=== PATIENT | female | born 1935 | race Caucasian/White ===

== ENCOUNTER 2016-07-15 12:29 | Emergency (ER) | payer MEDICARE, OTHER, BC ==
[2016-07-15] MEDS ORDERED: ASPIRIN 81 MG TABLET, CHEWABLE PO ONE (12:33)
--- NOTE | 2016-07-15 12:39 | ER Document Report ---
ED General - General Stated Complaint: WEAKNESS/DIZZY Mode of Arrival: Medic Information source: Patient, Emergency Med Personnel Notes: 80-year-old female history of multiple stents with recent stress test with blockage 5 weeks ago presents with complaoints of back pain radiating to the front. Patient notes dizziness lightheadedness, she had a presyncopal episode. When EMS arrived patient heart rate was in the mid 30s and was given atropine 0.5 mg with resolution of heart rate. Patient at this time denies any symptoms states she feels much better TRAVEL OUTSIDE OF THE [place] IN LAST 30 DAYS: No - HPI Onset: Just prior to arrival Onset/Duration: Sudden Quality of pain: Achy Severity: Mild Pain Level: 1 Associated symptoms: Chest pain, Weakness Exacerbated by: Denies Relieved by: Denies Similar symptoms previously: No Recently seen / treated by doctor: No - Related Data Allergies/Adverse Reactions: morphine [Morphine] Allergy (Verified 07/15/16 13:35) made crazy Past Medical History - Social History Smoking Status: Never Smoker Cigarette use (# per day): No Chew tobacco use (# tins/day): No Smoking Education Provided: No Family History: Reviewed & Not Pertinent - Past Medical History Cardiac Medical History: Reports: Hx Heart Attack - 2009, Hx Hypertension - METOPROLOL, LISINOPRIL Pulmonary Medical History: Denies: Hx Asthma Neurological Medical History: Denies: Hx Cerebrovascular Accident, Hx Seizures GI Medical History: Denies: Hx Hepatitis, Hx Hiatal Hernia, Hx Ulcer Infectious Medical History: Denies: Hx Hepatitis Past Surgical History: Reports: Hx Cardiac Catheterization, Hx Open Heart Surgery - stents x4. Denies: Hx Mastectomy, Hx Pacemaker - Immunizations Immunizations up to date: Yes Hx Diphtheria, Pertussis, Tetanus Vaccination: Yes - 03/09/14 Review of Systems - Review of Systems Notes: REVIEW OF SYSTEMS: CONSTITUTIONAL : Denies fever, chills, or sweats. Denies recent illness. EENT: Denies eye, ear, throat, or mouth pain or symptoms. Denies nasal or sinus congestion or discharge. Denies throat, tongue, or mouth swelling or difficulty swallowing. CARDIOVASCULAR: Admits to pain to the back RESPIRATORY: Denies cough, cold, or chest congestion. Denies shortness of breath, difficulty breathing, or wheezing. GASTROINTESTINAL: Denies abdominal pain or distention. Denies nausea, vomiting , or diarrhea. Denies blood in vomitus, stools, or per rectum. Denies black, tarry stools. Denies constipation. GENITOURINARY: Denies difficulty urinating, painful urination, burning, frequency, blood in urine, or discharge. FEMALE GENITOURINARY: Denies vaginal bleeding, heavy or abnormal periods, irregular periods. Denies vaginal discharge or odor. MUSCULOSKELETAL: Denies back or neck pain or stiffness. Denies joint pain or swelling. SKIN: Denies rash, lesions or sores. HEMATOLOGIC : Denies easy bruising or bleeding. LYMPHATIC: Denies swollen, enlarged glands. NEUROLOGICAL: Admits to dizziness PSYCHIATRIC: Denies anxiety or stress. Denies depression, suicidal ideation, or homicidal ideation. ALL OTHER SYSTEMS REVIEWED AND NEGATIVE. Dictation was performed using [employer] voice recognition software PHYSICAL EXAMINATION: GENERAL: Well-appearing, well-nourished and in no acute distress. HEAD: Atraumatic, normocephalic. EYES: Pupils equal round and reactive to light, extraocular movements intact, conjunctiva are normal. ENT: Nares patent, oropharynx clear without exudates. Moist mucous membranes. NECK: Normal range of motion, supple without lymphadenopathy LUNGS: Breath sounds clear to auscultation bilaterally and equal. No wheezes rales or rhonchi. HEART: Regular rate and rhythm without murmurs ABDOMEN: Soft, nontender, nondistended abdomen. No guarding, no rebound. No masses appreciated. Female : deferred Musculoskeletal: Normal range of motion, no pitting or edema. No cyanosis. NEUROLOGICAL: Cranial nerves grossly intact. Normal speech, normal gait. Normal sensory, motor exams PSYCH: Normal mood, normal affect. SKIN: Warm, Dry, normal turgor, no rashes or lesions noted. Physical Exam - Vital signs Vitals: Pulse Ox 99 07/15/16 12:33 Course - Re-evaluation Re-evalutation: 07/15/16 12:40 Patient's heart rate at this time is stable, blood pressure is now normalized. Reviewed medications notes metoprolol 07/15/16 14:09 [place] paged 07/15/16 14:[address] Cotton , requests ct head - Vital Signs Vital signs: Temp Pulse Resp BP Pulse Ox 97.8 F 62 16 149/50 H 98 07/15/16 13:27 07/15/16 13:27 07/15/16 13:31 07/15/16 13:31 07/15/16 13:31 - Laboratory Result Diagrams: 07/15/16 12:35 07/15/16 12:35 Laboratory results interpreted by me: 07/15/16 07/15/16 12:35 12:35 MCHC 37.0 H Sodium 129.8 L Chloride 92 L Creatine Kinase 139 H - Diagnostic Test Radiology reviewed: Image reviewed, Reports reviewed - EKG Interpretation by Me EKG shows normal: Sinus rhythm, [place], Intervals, QRS Complexes - Multiple PVCs noted When compared to previous EKG there are: Previous EKG unavailable Discharge - Discharge Clinical Impression: Bradycardia Chest pain Qualifiers: Chest pain type: unspecified Qualified Code(s): R07.9 - Chest pain, unspecified Hypotension Qualifiers: Hypotension type: unspecified hypotension type Qualified Code(s): I95.9 - Hypotension, unspecified Condition: Serious Disposition: [facility] Referrals: ROYER WATSON MD [Primary Care Provider] - Follow up as needed
[2016-07-15 12:53] LABS: ABSOLUTE EOSINOPHILS # (AUTO) 0.3 10^3/uL (0.0-0.6); ABSOLUTE LYMPHOCYTES (AUTO) 3.2 10^3/uL (0.5-4.7); ABSOLUTE NEUT (AUTO) 4.1 10^3/uL (1.7-8.2); BASOPHILS % (AUTO) 0.3 % (0-2); EOSINOPHILS % (AUTO) 2.9 % (0-6); HEMOGLOBIN 13.3 g/dL (12.0-15.5); HGB HCT DIFFERENCE 3.9; LYMPHOCYTES % (AUTO) 37.2 % (13-45); MEAN CORPUSCULAR HEMOGLOBIN 30.4 pg (27.0-33.4); MEAN CORPUSCULAR VOLUME 82 fl (80-97); MONOCYTES % (AUTO) 12.1 % (3-13); RED BLOOD COUNT 4.39 10^6/uL (3.72-5.28); RED CELL DISTRIBUTION WIDTH 13.3 % (11.5-14.0); SEGMENTED NEUTROPHILS % (AUTO) 47.5 % (42-78); WHITE BLOOD COUNT 8.7 10^3/uL (4.0-10.5)
[2016-07-15 12:54] LABS: PROTHROMBIN TIME 13.7 SEC (11.4-15.4)
[2016-07-15 13:15] LABS: ALANINE AMINOTRANSFERASE 29 U/L (9-52); ALKALINE PHOSPHATASE 53 U/L (38-126); ANION GAP 14 (5-19); ASPARTATE AMINO TRANSFERASE 26 U/L (14-36); BILIRUBIN,DIRECT 0.4 mg/dL (0.0-0.4); BLOOD UREA NITROGEN 14 mg/dL (7-20); CALCIUM 9.2 mg/dL (8.4-10.2); CARBON DIOXIDE 24 mmol/L (22-30); CHLORIDE 92 mmol/L (98-107); CREATINE KINASE 139 U/L (30-135); CREATININE RESULT 0.73 mg/dL (0.52-1.25); GLUCOSE 99 mg/dL (75-110); MAGNESIUM 1.7 mg/dL (1.6-2.3); POTASSIUM 3.7 mmol/L (3.6-5.0); SODIUM 129.8 mmol/L (137-145); TOTAL PROTEIN 6.5 g/dL (6.3-8.2)
[2016-07-15 14:05] LABS: CREATINE KINASE MB 1.24 ng/mL (<4.55); TROPONIN I < 0.012 ng/mL
--- NOTE | 2016-07-15 18:33 | EKG REPORT ---
SEVERITY:- ABNORMAL ECG - SINUS RHYTHM VENTRICULAR TRIGEMINY LEFT ANTERIOR FASCICULAR BLOCK LEFT VENTRICULAR HYPERTROPHY : Confirmed by: Kenrick Cervantes MD 15-Jul-2016 18:33:41
[2016-07-15 21:07] VITALS: BP 152/54
== END 2016-07-15 20:30 | disposition short-term general hospital (02) ==
LOC: ER 12:29
DX: R00.1 Bradycardia, unspecified (principal); R07.9 Chest pain, unspecified; I95.9 Hypotension, unspecified; R53.1 Weakness; R42 Dizziness and giddiness; I25.2 Old myocardial infarction; Z79.899 Other long term (current) drug therapy
CPT/HCPCS: 93005; 99285; 36415; 82553; 82550; 83735; 85025; 85610; 80053; 84484; 71010; 70450; 93010; A9270

== ENCOUNTER 2016-11-23 15:26 | Emergency (ER) | payer MEDICARE, OTHER, BC ==
--- NOTE | 2016-11-23 15:42 | ER Document Report ---
ED Blood Pressure Problem - General Mode of Arrival: Medic Information source: Patient TRAVEL OUTSIDE OF THE [place] IN LAST 30 DAYS: No - HPI Patient complains to provider of: Low blood pressure Onset: This morning - Refer to HPI Notes Associated symptoms: Visual changes Similar symptoms previously: No Recently seen / treated by doctor: No <KATIA STATON - Last Filed: 11/23/16 16:30> <ALEJANDRO AWAD - Last Filed: 11/23/16 18:18> - General Stated Complaint: BLOOD PRESSURE PROBLEMS Time Seen by Provider: 11/23/16 15:30 Notes: Patient is an 80 year old female presenting to the ED for hypotension. Patient took her blood pressure like normal and it was 71/50. Patient states she then was watching TV when her eyesight went "black" and she felt like she was going to pass out. Patient states this happened to both of her eyes and it did not last very long. Patient states she also felt clammy during this. Patient's blood pressure was 60s/30s with EMS and after the patient was stabilized her pressure was 107/52. Patient was seen on 07/15/16 for dizziness and was bradycardia; patient was sent to [facility] and a cardiac catheterization was completed with no stent. Patient states a stent was attempted but was unsuccessful. Patient was told she has CAD at [facility] and she also has hypertension and stents x4. Patient stared taking Isosorbide on 11/19/16 for her hypertension. Patient has a follow-up appointment for this on . PCP: Dr. Cao (KATIA STATON) - Related Data Allergies/Adverse Reactions: morphine [Morphine] Allergy (Verified 11/23/16 16:42) made tom Past Medical History - General Information source: Patient - Social History Smoking Status: Never Smoker Cigarette use (# per day): No Chew tobacco use (# tins/day): No Smoking Education Provided: No Frequency of alcohol use: None Drug Abuse: None Family History: Reviewed & Not Pertinent - Past Medical History Cardiac Medical History: Reports: Hx Heart Attack - 2009, Hx Hypertension - METOPROLOL, LISINOPRIL Past Surgical History: Reports: Hx Cardiac Catheterization - stents x4 - Immunizations Immunizations up to date: Yes Hx Diphtheria, Pertussis, Tetanus Vaccination: Yes - 03/09/14 <KATIA STATON - Last Filed: 11/23/16 16:30> Review of Systems - Review of Systems Constitutional: No symptoms reported EENT: See HPI Cardiovascular: See HPI Respiratory: No symptoms reported Gastrointestinal: No symptoms reported Genitourinary: No symptoms reported Female Genitourinary: No symptoms reported Musculoskeletal: No symptoms reported Skin: No symptoms reported Hematologic/Lymphatic: No symptoms reported Neurological/Psychological: No symptoms reported -: Yes All other systems reviewed and negative <KATIA STATON - Last Filed: 11/23/16 16:30> Physical Exam <KATIA STATON - Last Filed: 11/23/16 16:30> <ALEJANDRO AWAD - Last Filed: 11/23/16 18:18> - Vital signs Vitals: Resp Pulse Ox 16 98 11/23/16 15:45 11/23/16 15:45 - Notes Notes: GENERAL: Alert, interacts well. Mild distress. HEAD: Normocephalic, atraumatic. EYES: Appear normal. Pupils equal, round, and reactive to light. ENT: Moist mucus membranes, tongue midline. NECK: Full range of motion. Supple. Trachea midline. LUNGS: Clear to auscultation bilaterally, no wheezes, rales, or rhonchi. No respiratory distress. HEART: Regular rate and rhythm. No murmurs, gallops, or rubs. ABDOMEN: Soft, non-tender. Non-distended. Normal bowel sounds. EXTREMITIES: Moves all 4 extremities spontaneously. Normal strength. No edema. NEUROLOGICAL: Alert and oriented x3. Normal speech. No focal neurological deficits. GSC 15. PSYCH: Normal affect, normal mood. SKIN: Warm, dry, normal turgor. No rashes or lesions noted. (KATIA STATON) Course <KATIA STATON - Last Filed: 11/23/16 16:30> - Laboratory Result Diagrams: 11/23/16 16:08 11/23/16 16:08 - Diagnostic Test Radiology reviewed: Image reviewed, Reports reviewed - Chest x-ray shows mild cardiomegaly - EKG Interpretation by Me EKG shows normal: Sinus rhythm, [place], Intervals, QRS Complexes, ST-T Waves Rate: Normal - 53 Rhythm: NSR [place]/QRS: LAHB/LAFB Voltage: Consistant with LVH When compared to previous EKG there are: No significant change <ALEJANDRO AWAD - Last Filed: 11/23/16 18:18> - Re-evaluation Re-evalutation: 11/23/16 18:15 The patient's blood pressure has remained in the 145 150 range, and she feels fine. Is unremarkable. The last time this happened, she did get transferred, had a cardiac catheterization, and found that the vessels were not amenable to stenting so maximal medical management was recommended. She did have an additional medication added 4 days ago to control her blood pressure. The patient and the family feel comfortable stopping the most recent medication addition, and following up with her doctor on Friday. She now recognizes the need to lay down if she starts feeling lightheaded or blood pressure drops. She will return to the emergency room if the symptoms recur. (ALEJANDRO AWAD) - Vital Signs Vital signs: Temp Pulse Resp BP Pulse Ox 15 150/55 H 98 11/23/16 17:34 11/23/16 17:34 11/23/16 17:34 - Laboratory Laboratory results interpreted by me: 11/23/16 11/23/16 11/23/16 16:08 16:08 17:28 Hct 35.5 L MCHC 36.6 H Sodium 133.2 L Chloride 97 L Direct Bilirubin 0.5 H Urine Ascorbic Acid 40 H Discharge <KATIA STATON - Last Filed: 11/23/16 16:30> <ALEJANDRO AWAD - Last Filed: 11/23/16 18:18> - Discharge Clinical Impression: Near syncope Hypotension Qualifiers: Hypotension type: unspecified hypotension type Qualified Code(s): I95.9 - Hypotension, unspecified Condition: Stable Disposition: HOME, SELF-CARE Additional Instructions: Stop the most recent medication that was started to control your blood pressure. Be sure to lay down and elevate your feet if he began to feel lightheaded or your blood pressure falls again. Follow-up with your doctor on Friday to review your medications and symptoms. Return if you experience another drop in blood pressure. RETURN TO THE EMERGENCY ROOM IF ANY NEW OR WORSENING SYMPTOMS. Referrals: HAYES VERDUZCO MD [Primary Care Provider] - 11/25/16 Scribe Attestation: 11/23/16 18:17 I personally performed the services described in the documentation, reviewed and edited the documentation which was dictated to the scribe in my presence, and it accurately records my words and actions. (ALEJANDRO AWAD) Scribe Documentation - Scribe Written by Scribmegha:: Donte Leon 11/23/16 16:31 acting as scribe for :: Jeanne <KATIA STATON - Last Filed: 11/23/16 16:30>
[2016-11-23] MEDS ORDERED: NORMAL SALINE 1000 ML 250 ML IV ONE (16:33)
[2016-11-23 17:27] LABS: ABSOLUTE EOSINOPHILS # (AUTO) 0.1 10^3/uL (0.0-0.6); ABSOLUTE LYMPHOCYTES (AUTO) 1.5 10^3/uL (0.5-4.7); ABSOLUTE MONOCYTES (AUTO) 0.6 10^3/uL (0.1-1.4); ABSOLUTE NEUT (AUTO) 4.4 10^3/uL (1.7-8.2); ALANINE AMINOTRANSFERASE 30 U/L (9-52); ALBUMIN 4.3 g/dL (3.5-5.0); ALKALINE PHOSPHATASE 49 U/L (38-126); ANION GAP 13 (5-19); ASPARTATE AMINO TRANSFERASE 28 U/L (14-36); BASOPHILS % (AUTO) 0.4 % (0-2); BILIRUBIN,DIRECT 0.5 mg/dL (0.0-0.4); BILIRUBIN,TOTAL 1.1 mg/dL (0.2-1.3); BLOOD UREA NITROGEN 19 mg/dL (7-20); CALCIUM 9.3 mg/dL (8.4-10.2); CARBON DIOXIDE 23 mmol/L (22-30); CHLORIDE 97 mmol/L (98-107); CREATINE KINASE 81 U/L (30-135); CREATININE RESULT 0.81 mg/dL (0.52-1.25); EOSINOPHILS % (AUTO) 1.5 % (0-6); GLUCOSE 97 mg/dL (75-110); HEMATOCRIT 35.5 % (36.0-47.0); HGB HCT DIFFERENCE 3.5; LYMPHOCYTES % (AUTO) 23.3 % (13-45); MEAN CORPUSCULAR HEMOGLOBIN 31.6 pg (27.0-33.4); MEAN CORPUSCULAR HGB CONC 36.6 g/dL (32.0-36.0); MEAN CORPUSCULAR VOLUME 86 fl (80-97); MONOCYTES % (AUTO) 8.9 % (3-13); POTASSIUM 4.6 mmol/L (3.6-5.0); RED BLOOD COUNT 4.11 10^6/uL (3.72-5.28); RED CELL DISTRIBUTION WIDTH 13.7 % (11.5-14.0); SEGMENTED NEUTROPHILS % (AUTO) 65.9 % (42-78); SODIUM 133.2 mmol/L (137-145); TOTAL PROTEIN 7.4 g/dL (6.3-8.2); WHITE BLOOD COUNT 6.6 10^3/uL (4.0-10.5)
--- NOTE | 2016-11-23 17:33 | RADIOLOGY REPORT (SQ) ---
EXAM DESCRIPTION: CHEST SINGLE VIEW COMPLETED DATE/TIME: 11/23/2016 5:20 pm REASON FOR STUDY: hypotensive COMPARISON: 07/15/2016 NUMBER OF VIEWS: One view. TECHNIQUE: Single frontal radiographic view of the chest acquired. LIMITATIONS: None. FINDINGS: LUNGS AND PLEURA: No opacities, masses or pneumothorax. No pleural effusion. MEDIASTINUM AND HILAR STRUCTURES: No masses. Contour normal. HEART AND VASCULAR STRUCTURES: Mild cardiomegaly, unchanged. Normal vasculature. BONES: No acute findings. HARDWARE: None in the chest. OTHER: No other significant finding. IMPRESSION: MILD CARDIOMEGALY WITHOUT FAILURE. NO OTHER SIGNIFICANT RADIOGRAPHIC FINDING IN THE [facility]. TECHNICAL DOCUMENTATION: JOB ID: [id number] [employer]- All Rights Reserved
[2016-11-23 17:43] LABS: CREATINE KINASE MB 0.95 ng/mL (<4.55); TROPONIN I < 0.012 ng/mL
[2016-11-23 17:52] LABS: APPEARANCE,URINE CLEAR; BILIRUBIN,URINE NEGATIVE (NEGATIVE); GLUCOSE, URINE NEGATIVE (NEGATIVE); KETONES,URINE NEGATIVE (NEGATIVE); LEUKOCYTE ESTERASE,URINE NEGATIVE (NEGATIVE); NITRITE,URINE NEGATIVE (NEGATIVE); PROTEIN,URINE NEGATIVE (NEGATIVE); URINE SPECIFIC GRAVITY 1.014; UROBILINOGEN,URINE NEGATIVE mg/dL (<2.0)
[2016-11-23 18:46] VITALS: BP 135/78
--- NOTE | 2016-11-24 11:13 | EKG REPORT ---
SEVERITY:- ABNORMAL ECG - SINUS RHYTHM LEFT ANTERIOR FASCICULAR BLOCK LEFT VENTRICULAR HYPERTROPHY : Confirmed by: An Robertson MD 24-Nov-2016 11:12:58
== END 2016-11-23 18:45 | disposition home or self-care (01) ==
LOC: ER 15:26
DX: R42 Dizziness and giddiness (principal); I95.9 Hypotension, unspecified; I10 Essential (primary) hypertension; I25.10 Atherosclerotic heart disease of native coronary artery without angina pectoris
CPT/HCPCS: 93005; 99285; 36415; 82553; 82550; 85025; 80053; 81001; 84484; 71010; 93010; J7030

== ENCOUNTER 2018-12-19 21:39 | Inpatient (IN) | payer MEDICARE, OTHER, BC ==
[2018-12-19 22:38] LABS: ABSOLUTE EOSINOPHILS # (AUTO) 0.1 10^3/uL (0.0-0.6); ABSOLUTE LYMPHOCYTES (AUTO) 1.4 10^3/uL (0.5-4.7); ABSOLUTE MONOCYTES (AUTO) 0.8 10^3/uL (0.1-1.4); ABSOLUTE NEUT (AUTO) 6.6 10^3/uL (1.7-8.2); BASOPHILS % (AUTO) 0.5 % (0-2); EOSINOPHILS % (AUTO) 1.2 % (0-6); HEMATOCRIT 30.2 % (36.0-47.0); LYMPHOCYTES % (AUTO) 15.9 % (13-45); MEAN CORPUSCULAR HEMOGLOBIN 33.9 pg (27.0-33.4); MEAN CORPUSCULAR HGB CONC 36.5 g/dL (32.0-36.0); MEAN CORPUSCULAR VOLUME 93 fl (80-97); PLATELET COUNT 125 10^3/uL (150-450); RED BLOOD COUNT 3.25 10^6/uL (3.72-5.28); RED CELL DISTRIBUTION WIDTH 13.4 % (11.5-14.0); SEGMENTED NEUTROPHILS % (AUTO) 73.4 % (42-78); TOTAL CELLS COUNTED % (AUTO) 100 %; WHITE BLOOD COUNT 8.9 10^3/uL (4.0-10.5)
[2018-12-19] MEDS ORDERED: NORMAL SALINE 500 ML IV ONE (22:38)
--- NOTE | 2018-12-19 22:38 | ER Document Report ---
ED General - General Chief Complaint: Dizziness Stated Complaint: FALL Time Seen by Provider: 12/19/18 22:15 Primary Care Provider: HAYES VERDUZCO MD [Primary Care Provider] - Follow up as needed TRAVEL OUTSIDE OF THE [place] IN LAST 30 DAYS: No - HPI Notes: Patient is a 83-year-old female that presents to the emergency department for chief complaint of near syncope. Patient states she stood up off of her couch and walked towards her living room. She states there are 3 stairs that she had to go up to get into the living room and when she got to the top of the steps she began to feel very lightheaded. She lowered herself down onto her hands and knees and then reports her vision went very black. She states she was too lightheaded to stand up. She was able to crawl into another room and call her family. She denied any fall or injury. She denied any complete loss of consciousness. She did not have any associated shortness of breath, palpitations, chest pain, nausea or diaphoresis. Patient does report history of low heart rate and near syncopal episodes in the past. Currently patient states she feels back to normal. She does report that her sister a few days ago and she was at the today. She reports she had been trying to drink plenty of water but did not eat dinner. Past Medical History: Hypertension, hyperlipidemia, CAD Past Surgical History: Reviewed in chart Social History: Lives at home independently. Denies tobacco and alcohol use Family History: Reviewed and noncontributory for presenting illness Allergies: Reviewed, see documented allergy list. REVIEW OF SYSTEMS: CONSTITUTIONAL : No fever No chills No diaphoresis No recent illness EENT: No vision changes No congestion No sore throat CARDIOVASCULAR: No chest pain No palpitations RESPIRATORY: No shortness of breath No cough No difficulty breathing GASTROINTESTINAL: No abdominal pain No nausea No vomiting No diarrhea GENITOURINARY: No dysuria No hematuria No difficulty urinating MUSCULOSKELETAL: No back pain No leg pain No arm pain SKIN: No rashes No lesions LYMPHATIC: No swollen, enlarged glands. NEUROLOGICAL: lightheadedness No headache No weakness No paresthesias PSYCHIATRIC: No anxiety No depression PHYSICAL EXAMINATION: Vital signs reviewed, nursing noted reviewed. GENERAL: Well-appearing, well-nourished and in no acute distress. HEAD: Atraumatic, normocephalic. EYES: Eyes appear normal, extraocular movements intact, sclera anicteric, conjunctiva are normal. ENT: nares patent, oropharynx clear without exudates. Moist mucous membranes. NECK: Normal range of motion, supple without lymphadenopathy LUNGS: Breath sounds clear to auscultation bilaterally and equal. No wheezes rales or rhonchi. HEART: Regular rate and rhythm without murmurs ABDOMEN: Soft, nontender, normoactive bowel sounds. No rebound, guarding, or rigidity. No masses appreciated. EXTREMITIES: Nontender, good range of motion, no pitting or edema. NEUROLOGICAL: No focal neurological deficits. Moves all extremities spontaneously Motor and sensory grossly intact on exam. PSYCH: Normal mood, normal affect. SKIN: Warm, Dry, normal turgor, no rashes or lesions noted on exposed skin - Related Data Allergies/Adverse Reactions: morphine [Morphine] Allergy (Verified 12/19/18 22:15) made crazy Past Medical History - Social History Smoking Status: Never Smoker Frequency of alcohol use: None Drug Abuse: None Family History: Reviewed & Not Pertinent Patient has suicidal ideation: No Patient has homicidal ideation: No - Past Medical History Cardiac Medical History: Reports: Hx Heart Attack - 2009, Hx Hypertension - METOPROLOL, LISINOPRIL Pulmonary Medical History: Denies: Hx Asthma Neurological Medical History: Denies: Hx Cerebrovascular Accident, Hx Seizures Renal/ Medical History: Denies: Hx Peritoneal Dialysis GI Medical History: Denies: Hx Hepatitis, Hx Hiatal Hernia, Hx Ulcer Infectious Medical History: Denies: Hx Hepatitis Past Surgical History: Reports: Hx Cardiac Catheterization - stents x4, Hx Open Heart Surgery - stents x4. Denies: Hx Mastectomy, Hx Pacemaker - Immunizations Immunizations up to date: Yes Hx Diphtheria, Pertussis, Tetanus Vaccination: Yes - 03/09/14 Physical Exam - Vital signs Vitals: Temp Pulse Resp BP Pulse Ox 97.7 F 48 L 13 160/58 H 99 12/19/18 21:40 12/19/18 21:40 12/19/18 21:40 12/19/18 21:40 12/19/18 21:40 Course - Re-evaluation Re-evalutation: 12/19/18 22:36 Vitals reviewed. Nursing notes reviewed. Patient is alert and mentating. Currently she is asymptomatic. Patient was bradycardic with a heart rate of 38 and hypotensive with a systolic blood pressure of 96 when EMS arrived at her ho use. She did receive 500 mL's of normal saline prior to presentation in the emergency and reports that made her feel significantly better. Currently her vital signs are stable. EKG shows bradycardia with no ectopy or ischemic changes. Patient does take metoprolol and has a history of bradycardia. Her low blood pressure and near syncopal episode may have been related to poor oral intake from being at her sister's all day. Patient will be placed on classroom monitor. 12/19/18 23:47 Patient reevaluated. She states she is now feeling dizzy again. When the orthostatic vital signs were obtained she states she was having a hard time standing up because of lightheadedness and dizziness. She is technically orthostatic negative by vitals. Patient's lab work shows hyponatremia with a sodium of 124. Her potassium is normal. EKG shows a sinus bradycardia with QT prolongation and QTC of 508. Patient will be admitted to the hospital for her near syncope and hyponatremia. Care discussed with Dr. Brown who accepts admission. Family in agreement with plan of care. Laboratory 12/19/18 12/19/18 12/19/18 22:20 22:20 22:20 WBC 8.9 RBC 3.25 L Hgb 11.0 L Hct 30.2 L MCV 93 MCH 33.9 H MCHC 36.5 H RDW 13.4 Plt Count 125 L Lymph % (Auto) 15.9 [place] % (Auto) 9.0 Eos % (Auto) 1.2 Baso % (Auto) 0.5 Absolute Neuts (auto) 6.6 Absolute Lymphs (auto) 1.4 Absolute Monos (auto) 0.8 Absolute Eos (auto) 0.1 Absolute Basos (auto) 0.0 Seg Neutrophils % 73.4 Sodium 124.4 L Potassium 3.6 Chloride 92 L Carbon Dioxide 23 Anion Gap 9 BUN 20 Creatinine 0.69 Est GFR ( Amer) > 60 Est GFR (MDRD) Non-Af > 60 Glucose 90 Calcium 8.7 Troponin I < 0.012 Chest X-Ray 12/19/18 22:16 IMPRESSION: 1. No acute pulmonary process identified. - Vital Signs Vital signs: Temp Pulse Resp BP Pulse Ox 97.7 F 48 L 15 137/50 H 98 12/19/18 21:40 12/19/18 22:37 12/19/18 22:01 12/19/18 22:37 12/19/18 22:01 - Laboratory Result Diagrams: 12/19/18 22:20 12/19/18 22:20 Laboratory results interpreted by me: 12/19/18 12/19/18 22:20 22:20 RBC 3.25 L Hgb 11.0 L Hct 30.2 L MCH 33.9 H MCHC 36.5 H Plt Count 125 L Sodium 124.4 L Chloride 92 L - EKG Interpretation by Me Additional EKG results interpreted by me: 12/19/18 22:36 Interpreted by myself [id number]: Sinus bradycardia, rate 48, LVH, normal axis, no ectopy, no STEMI, QT prolongation, QTC 508 Discharge - Discharge Clinical Impression: Near syncope, Bradycardia, Hyponatremia Condition: Stable Disposition: ADMITTED INPATIENT Admitting Provider: Kevin (Hospitalist) Unit Admitted: Telemetry Referrals: HAYES VERDUZCO MD [Primary Care Provider] - Follow up as needed
[2018-12-19 23:03] LABS: ANION GAP 9 (5-19); BLOOD UREA NITROGEN 20 mg/dL (7-20); CALCIUM 8.7 mg/dL (8.4-10.2); CARBON DIOXIDE 23 mmol/L (22-30); CHLORIDE 92 mmol/L (98-107); GLUCOSE 90 mg/dL (75-110); POTASSIUM 3.6 mmol/L (3.6-5.0)
--- NOTE | 2018-12-19 23:19 | RADIOLOGY REPORT (SQ) ---
EXAM DESCRIPTION: XR CHEST 1 VIEW COMPLETED DATE/TME: 12/19/2018 22:16 CLINICAL HISTORY: Syncope COMPARISON: 11/23/2016 FINDINGS: Single frontal view of the chest. Cardiomediastinal silhouette: Atherosclerotic calcification of the thoracic aorta. Heart is not enlarged. Leads overlie the chest. Lungs: No consolidation, pneumothorax, or pleural effusion. Bones: No acute osseous abnormality. Upper abdomen: No abnormality identified. IMPRESSION: 1. No acute pulmonary process identified.
[2018-12-19] MEDS ORDERED: ONDANSETRON HCL INJ/PF 4 MG/2 ML SDV IV PRN (23:55)
[2018-12-19] MEDS ORDERED: MAGNESIUM HYDROXIDE SUSP 30 ML UDCUP PO PRN (23:55)
[2018-12-19] MEDS ORDERED: RINGERS SOLUTION,LACTATED 1,000 ML IV PRN (23:55)
[2018-12-19] MEDS ORDERED: MAG HYDROX/AL HYDROX/SIMETH SUSP 30 ML UDCUP PO PRN (23:55)
[2018-12-20 00:45] LABS: APPEARANCE,URINE CLEAR; BILIRUBIN,URINE NEGATIVE (NEGATIVE); COLOR,URINE YELLOW; GLUCOSE, URINE NEGATIVE (NEGATIVE); KETONES,URINE NEGATIVE (NEGATIVE); LEUKOCYTE ESTERASE,URINE NEGATIVE (NEGATIVE); NITRITE,URINE NEGATIVE (NEGATIVE); PROTEIN,URINE NEGATIVE (NEGATIVE); URINE SPECIFIC GRAVITY 1.009; UROBILINOGEN,URINE NEGATIVE mg/dL (<2.0)
[2018-12-20] MEDS: FAMOTIDINE 20 MG TABLET PO SCH ×3 (01:32→21:43)
[2018-12-20 01:45] LABS: FREE T3 3.06 pg/mL (2.77-5.27); FREE T4 (FREE THYROXINE) 1.18 ng/dL (0.78-2.19)
[2018-12-20 01:59] LABS: THYROID STIMULATING HORMONE 1.77 uIU/mL (0.47-4.68)
--- NOTE | 2018-12-20 02:03 | PDOC H&P ---
History of Present Illness Admission Date/PCP: 12/19/2018 23:59 HAYES VERDUZCO MD Patient complains of: Lightheadedness History of Present Illness: NEHA DENTON is a 83 year old female who presented to the emergency room with acute lightheadedness. She admits that shortly prior to coming to the hospital via ambulance she got up off of her couch and walked up the 3 stairs to get into her living room when she began feeling very lightheaded and fell over the last step onto her hands and knees. She felt too lightheaded to stand and her vision seemed to "go dark". She crawled in her hands and knees to get to a phone where she called her son for help. She denies unconsciousness and injury. She denies other accompanying or associated symptoms. She admits several prior similar episodes, "usually due to my sodium and potassium". She further reports that she attended her sister's today and did not eat dinner this evening but was drinking plenty of fluids throughout the day. At the time the patient was seen in the emergency room she felt like she was back to normal. She has not identified any aggravating or ameliorating factors for her lightheadedness. In the emergency room she was found to be bradycardic (38-48) which was also noted by EMS and she was mildly hypotensive. Her initial cardiac enzymes were negative and her EKG showed no evidence of myocardial ischemia or injury. She was subsequently admitted to the hospital for further evaluation and treatment. Past Medical History Cardiac Medical History: Reports: Coronary Artery Disease, Hyperlipidema, Hypertension Denies: Atrial Fibrillation, Congestive Heart Failure, DVT, Myocardial Infarction, Peripheral Vascular Disease, Pulmonary Embolism Pulmonary Medical History: Denies: Asthma, Chronic Obstructive Pulmonary Disease (COPD), Tuberculosis EENT Medical History: Reports: Cataracts - Bilateral with lens replacements, Eyes - Borderline glaucoma Denies: Ears - Hearing aids, Nose - Allergic rhinitis Neurological Medical History: Denies: Hemorrhagic CVA, Ischemic CVA, Multiple Sclerosis, Seizures Endocrine Medical History: Denies: Diabetes Mellitus Type 1, Diabetes Mellitus Type 2, Hyperthyroidism, Hypothyroidism, Obesity Renal/ Medical History: Denies: Chronic Kidney Disease, Nephrolithiasis Malignancy Medical History: Reports: None GI Medical History: Denies: Cirrhosis, Crohn's Disease, Gastroesophageal Reflux Disease, Hepatitis, Hiatal Hernia, Peptic Ulcer Disease, Ulcerative Colitis Musculoskeltal Medical History: Reports: Other - Osteoporosis Denies: Arthritis, Fibromyalgia, Gout Skin Medical History: Denies: Eczema, Psoriasis Psychiatric Medical History: Denies: Alcohol Dependency, Substance Abuse, Tobacco Dependency Traumatic Medical History: Reports: None Hematology: Denies: Anemia, Bleeding Tendencies Infectious Medical History: Reports: None Past Surgical History Past Surgical History: Reports: Cardiac Catheterization - X 4, Coronary Stent - X 3, Orthopedic Surgery - Right hip surgery, left rotator cuff repair and left foot fracture, Other - Bilateral cataract surgery Social History Information Source: Patient Lives with: Alone Smoking Status: Never Smoker Frequency of Alcohol Use: None Hx Recreational Drug Use: No Drugs: None Hx Prescription Drug Abuse: No - Advance Directive Resuscitation Status: Full Code Surrogate healthcare decision maker:: James Denton Family History Family History: CAD, Hypertension, Malignancy. denies: DM Parental Family History Reviewed: Yes Children Family History Reviewed: No Sibling(s) Family History Reviewed.: Yes Medication/Allergy Home Medications: Amoxicillin 500 mg PO BID 02/28/12 Atorvastatin Calcium [Lipitor 10 Mg Tablet] 10 mg PO QHS 02/28/12 Benzonatate [Tessalon 200 mg Capsule] 200 mg PO 02/28/12 Calcium Carbonate/Vitamin D3 [Calcium + Vitamin D Tablet] 1 each PO DAILY 02/28/12 Clopidogrel Bisulfate [Plavix 75 Mg Tablet] 75 mg PO DAILY 02/28/12 Lisinopril [Prinivil 10 mg Tablet] 10 mg PO DAILY 02/28/12 Metoprolol Succinate [Toprol XL 25 mg Tablet] 25 mg PO DAILY 02/28/12 Oxycodone HCl/Acetaminophen [Percocet 5-325 mg Tablet] 1 tab PO Q6HP PRN #15 tablet 03/09/14 Allergies/Adverse Reactions: morphine [Morphine] Allergy (Verified 12/19/18 22:15) made crazy Review of Systems Constitutional: PRESENT: as per HPI, anorexia. ABSENT: chills, fever(s) Eyes: PRESENT: as per HPI, visual disturbances. ABSENT: other - Eye pain Ears: ABSENT: hearing changes, other - Ear pain Nose, Mouth, and Throat: ABSENT: headache(s), mouth pain, sore throat, vertigo Cardiovascular: ABSENT: chest pain, dyspnea on exertion, edema, orthropnea, palpitations Respiratory: ABSENT: cough, dyspnea Gastrointestinal: ABSENT: abdominal pain, constipation, diarrhea, nausea, vomiting Genitourinary: ABSENT: dysuria, hematuria Musculoskeletal: ABSENT: back pain, joint swelling, muscle weakness Integumentary: ABSENT: pruritus, rash Neurological: PRESENT: as per HPI, other - Near syncopal episode. ABSENT: confusion, convulsions, focal weakness, memory loss, syncope Psychiatric: ABSENT: anxiety, depression Endocrine: ABSENT: cold intolerance, heat intolerance Hematologic/Lymphatic: ABSENT: easy bleeding, easy bruising Allergic/Immunologic: ABSENT: seasonal rhinorrhea Physical Exam Vital Signs: Temp Pulse Resp BP Pulse Ox 97.7 F 48 L 15 137/50 H 98 12/19/18 21:40 12/19/18 22:37 12/19/18 22:01 12/19/18 22:37 12/19/18 22:01 Intake & Output 12/17/18 12/18/18 12/19/18 23:59 23:59 23:59 Weight 46.72 kg General appearance: PRESENT: no acute distress, cooperative, thin Head exam: PRESENT: atraumatic, normocephalic Eye exam: PRESENT: conjunctiva pink. ABSENT: conjunctival injection, scleral icterus Ear exam: PRESENT: normal external ear exam. ABSENT: bleeding, drainage Mouth exam: PRESENT: dry mucosa, neck supple Neck exam: ABSENT: thyromegaly, tracheal deviation Respiratory exam: PRESENT: clear to auscultation lyn[place], symmetrical, unlabored Cardiovascular exam: PRESENT: bradycardia, RRR. ABSENT: clicks, gallop, rubs Pulses: PRESENT: normal radial pulses, normal dorsalis pedis pul Vascular exam: PRESENT: normal capillary refill. ABSENT: pallor GI/Abdominal exam: PRESENT: normal bowel sounds, soft. ABSENT: tenderness Rectal exam: PRESENT: deferred Extremities exam: ABSENT: joint swelling, pedal edema, tenderness Musculoskeletal exam: PRESENT: full ROM. ABSENT: deformity, dislocation Neurological exam: PRESENT: alert, oriented to person, oriented to place, oriented to time, oriented to situation, CN II-XII grossly intact. ABSENT: mot or sensory deficit Psychiatric exam: PRESENT: appropriate affect, normal mood Skin exam: PRESENT: dry, intact, warm. ABSENT: jaundice, rash, urticaria Results Laboratory Results: 12/19/18 22:20 12/19/18 22:20 12/19/18 12/19/18 22:20 22:20 WBC 8.9 RBC 3.25 L Hgb 11.0 L Hct 30.2 L MCV 93 MCH 33.9 H MCHC 36.5 H RDW 13.4 Plt Count 125 L Seg Neutrophils % 73.4 Sodium 124.4 L Potassium 3.6 Chloride 92 L Carbon Dioxide 23 Anion Gap 9 BUN 20 Creatinine 0.69 Est GFR ( Amer) > 60 Glucose 90 Calcium 8.7 12/19/18 22:20 Troponin I < 0.012 Impressions: Chest X-Ray 12/19/18 22:16 IMPRESSION: 1. No acute pulmonary process identified. Assessment and Plan - Diagnosis (1) Near syncope Is this a current diagnosis for this admission?: Yes Plan: Serial cardiac enzymes and EKGs will be obtained. CT scan of the head will be obtained. Patient will be monitored on telemetry and a cardiology consultation will be obtained with Dr. Robertson to guide further evaluation and treatment. (2) Bradycardia Is this a current diagnosis for this admission?: Yes Plan: Patient's bradycardia is consistent with her beta-alena therapy. Is uncertain if the bradycardia is enough significance to cause her syncopal episodes and this will need to be determined by Dr. Robertson as part of his evaluation and recommendations for treatment. (3) Coronary artery disease Qualifiers: Coronary Disease-Associated Artery/Lesion type: [place] artery [place] vs. transplanted heart: [place] heart Associated angina: without angina Qualified Code(s): I25.10 - Atherosclerotic heart disease of [place] coronary artery without angina pectoris Is this a current diagnosis for this admission?: Yes Plan: Patient's current medications of clopidogrel, metoprolol, lisinopril and Lipitor are going to be continued at the present time, however he will be reviewed for possible changes by Dr. Robertson in his consultation. (4) Essential hypertension Is this a current diagnosis for this admission?: Yes Plan: Patient will be continued on her current medical regimen as described above until consideration for overall treatment can be provided by Dr. Robertson. (5) Hyponatremia Is this a current diagnosis for this admission?: Yes Plan: Patient's hyponatremia will be evaluated by serial metabolic profiles. The treatment of her hyponatremia will sodium bicarbonate oral therapy. (6) Anemia Qualifiers: Anemia type: unspecified type Qualified Code(s): D64.9 - Anemia, unspecified Is this a current diagnosis for this admission?: Yes Plan: An anemia profile and stools for occult blood x3 are ordered. A thyroid profile will be obtained. (7) HLD (hyperlipidemia) Qualifiers: Hyperlipidemia type: unspecified Qualified Code(s): E78.5 - Hyperlipidemia, unspecified Is this a current diagnosis for this admission?: Yes Plan: A lipid profile will be obtained to assess her current medical therapy efficacy. She will be continued on her Lipitor 10 mg daily until the results are available. - Time Time Spent with patient: 15-24 minutes Medications reviewed and adjusted accordingly: Yes Anticipated discharge: Home - Inpatient Certification Based on my medical assessment, after consideration of the patient's wilder rbidities, presenting symptoms, or acuity I expect that the services needed warrant INPATIENT care.: Yes I certify that my determination is in accordance with my understanding of Medicare's requirements for reasonable and necessary INPATIENT services [42 CFR 412.3e].: Yes Medical Necessity: Significant Comorbidiites Make Outpatient Treatment Too Risky, Need Close Monitoring Due to Risk of Patient Decompensation, Need For Continuous Telemetry Monitoring, Need for Neurological Checks, Risk of Complication if Not Cared For in Hospital, Risk of Diagnosis Which Will Require Inpatient Eval/Care/Monitoring
[2018-12-20 04:49] LABS: ABSOLUTE RETICS # 0.043 10^6/uL (0.028-0.122); HEMOGLOBIN 10.9 g/dL (12.0-15.5); MEAN CORPUSCULAR HEMOGLOBIN 34.4 pg (27.0-33.4); MEAN CORPUSCULAR VOLUME 92 fl (80-97); PLATELET COUNT 120 10^3/uL (150-450); RED BLOOD COUNT 3.16 10^6/uL (3.72-5.28); RED CELL DISTRIBUTION WIDTH 13.3 % (11.5-14.0); RETICULOCYTE COUNT (AUTO) 1.35 % (0.66-2.85); WHITE BLOOD COUNT 6.1 10^3/uL (4.0-10.5)
[2018-12-20 04:58] LABS: ANION GAP 7 (5-19); BLOOD UREA NITROGEN 14 mg/dL (7-20); CALCIUM 8.6 mg/dL (8.4-10.2); CARBON DIOXIDE 23 mmol/L (22-30); CHLORIDE 96 mmol/L (98-107); CHOLESTEROL 97.99 mg/dL (0-200); CREATINE KINASE 128 U/L (30-135); GLUCOSE 92 mg/dL (75-110); POTASSIUM 3.5 mmol/L (3.6-5.0); TRIGLYCERIDES 40 mg/dL (<150)
[2018-12-20 05:09] LABS: DIRECT LDL 41 mg/dL (<100)
[2018-12-20 05:10] LABS: CREATINE KINASE MB 2.74 ng/mL (<4.55)
[2018-12-20 05:15] LABS: TROPONIN I < 0.012 ng/mL
[2018-12-20] MEDS: HEPARIN SOD (PORCINE) 5,000 UNIT/ML 1 ML VIAL SUBCUT SCH ×3 (05:48→21:34)
[2018-12-20 06:06] LABS: FOLATE > 20.00 ng/mL (>2.76)
[2018-12-20 06:21] LABS: MEAN CORPUSCULAR HGB CONC 37.5 g/dL (32.0-36.0)
[2018-12-20] MEDS ORDERED: POTASSIUM CHLORIDE 10 MEQ CAPSULE.ER PO ONE ×2 (09:00→13:00)
--- NOTE | 2018-12-20 09:14 | PDOC PROGRESS REPORT ---
Subjective Progress Note for:: 12/20/18 Subjective:: 83 year old female who presented to the emergency room with acute l ightheadedness. She admits that shortly prior to coming to the hospital via ambulance she got up off of her couch and walked up the 3 stairs to get into her living room when she began feeling very lightheaded and fell over the last step onto her hands and knees. She felt too lightheaded to stand and her vision seemed to "go dark". She crawled in her hands and knees to get to a phone where she called her son for help. She denies unconsciousness and injury. She denies other accompanying or associated symptoms. She admits several prior similar episodes, "usually due to my sodium and potassium". She further reports that she attended her sister's today and did not eat dinner this evening but was drinking plenty of fluids throughout the day. At the time the patient was seen in the emergency room she felt like she was back to normal. She has not identified any aggravating or ameliorating factors for her lightheadedness. In the emergency room she was found to be bradycardic (38-48) which was also noted by EMS and she was mildly hypotensive. Her initial cardiac enzymes were negative and her EKG showed no evidence of myocardial ischemia or injury. She was subsequently admitted to the hospital for further evaluation and treatment. 12/20/[id number]-dogl-old female admitted with a near syncope. CT head and carotid Doppler pending. Also found to be hyponatremic with serum sodium of 124 at the time of admission and it was improved to 126 today. Comfortable in the bed com municating well. No change in mental status. Family members at bedside they agreed to keep her at least another day. no Acute events noticed during this hospital stay. Reason For Visit: NEAR SYNCOPE Physical Exam Vital Signs: Temp Pulse Resp BP Pulse Ox 97.6 F 51 L 14 158/59 H 97 12/20/18 04:00 12/20/18 04:00 12/20/18 04:00 12/20/18 04:00 12/20/18 04:00 Intake & Output 12/19/18 12/20/18 12/21/18 06:59 06:59 06:59 Intake Total 500 Output Total 400 Balance 100 Weight 46.72 kg General appearance: PRESENT: no acute distress Head exam: PRESENT: atraumatic Eye exam: PRESENT: PERRLA Neck exam: ABSENT: carotid bruit, JVD, lymphadenopathy, thyromegaly Respiratory exam: PRESENT: decreased breath sounds Cardiovascular exam: PRESENT: RRR. ABSENT: diastolic murmur, rubs, systolic murmur GI/Abdominal exam: PRESENT: normal bowel sounds, soft. ABSENT: distended, guarding, mass, organolmegaly, rebound, tenderness Rectal exam: PRESENT: deferred Neurological exam: PRESENT: alert, awake, oriented to person, oriented to place, oriented to time, oriented to situation, CN II-XII grossly intact. ABSENT: motor sensory deficit Psychiatric exam: PRESENT: appropriate affect, normal mood. ABSENT: homicidal ideation, suicidal ideation Results Laboratory Results: 12/20/18 04:28 12/20/18 04:28 12/19/18 12/19/18 12/19/18 22:20 22:20 22:20 WBC 8.9 RBC 3.25 L Hgb 11.0 L Hct 30.2 L MCV 93 MCH 33.9 H MCHC 36.5 H RDW 13.4 Plt Count 125 L Seg Neutrophils % 73.4 Retic Count (auto) Sodium 124.4 L Potassium 3.6 Chloride 92 L Carbon Dioxide 23 Anion Gap 9 BUN 20 Creatinine 0.69 Est GFR ( Amer) > 60 Glucose 90 Calcium 8.7 Magnesium Iron TIBC % Saturation Ferritin Triglycerides Cholesterol LDL Cholesterol Direct VLDL Cholesterol HDL Cholesterol Vitamin B12 Folate TSH 1.77 Free T4 1.18 Free T3 pg/mL 3.06 Urine Color Urine Appearance Urine pH Ur Specific [place] Urine Protein Urine Glucose (UA) Urine Ketones Urine Blood Urine Nitrite Ur Leukocyte Esterase Urine WBC (Auto) Urine RBC (Auto) 12/19/18 12/20/18 12/20/18 23:57 04:28 04:28 WBC 6.1 RBC 3.16 L Hgb 10.9 L Hct 29.0 L MCV 92 MCH 34.4 H MCHC 37.5 H RDW 13.3 Plt Count 120 L Seg Neutrophils % Retic Count (auto) 1.35 Sodium 126.2 L Potassium 3.5 L Chloride 96 L Carbon Dioxide 23 Anion Gap 7 BUN 14 Creatinine 0.57 Est GFR ( Amer) > 60 Glucose 92 Calcium 8.6 Magnesium 1.5 L Iron 57.0 TIBC 270 % Saturation 21 Ferritin 85.20 Triglycerides 40 Cholesterol 97.99 LDL Cholesterol Direct 41 VLDL Cholesterol 8.0 L HDL Cholesterol 56 Vitamin B12 282.0 Folate > 20.00 TSH Free T4 Free T3 pg/mL Urine Color YELLOW Urine Appearance CLEAR Urine pH 7.0 Ur Specific [place] 1.009 Urine Protein NEGATIVE Urine Glucose (UA) NEGATIVE Urine Ketones NEGATIVE Urine Blood NEGATIVE Urine Nitrite NEGATIVE Ur Leukocyte Esterase NEGATIVE Urine WBC (Auto) 1 Urine RBC (Auto) 0 12/19/18 12/19/18 12/19/18 22:20 22:20 22:20 Creatine Kinase 161 H CK-MB (CK-2) 2.86 Troponin I < 0.012 Cancelled 12/20/18 12/20/18 04:28 04:28 Creatine Kinase 128 CK-MB (CK-2) 2.74 Troponin I < 0.012 Impressions: Chest X-Ray 12/19/18 22:16 IMPRESSION: 1. No acute pulmonary process identified. Assessment and Plan - Diagnosis (1) Near syncope Is this a current diagnosis for this admission?: Yes Plan: Serial cardiac enzymes and EKGs will be obtained. CT scan of the head will be obtained. Patient will be monitored on telemetry and a cardiology consultation will be obtained with Dr. Robertson to guide further evaluation and treatment. 12/20/18- pt is doing well .. scheduled for ct and carotid doppler pending. Near syncope may be secondary to hyponatremia. (2) Hyponatremia Is this a current diagnosis for this admission?: Yes Plan: Patient's hyponatremia will be evaluated by serial metabolic profiles. The treatment of her hyponatremia will sodium bicarbonate oral therapy. 12/20/2018-patient has history of hyponatremia she was admitted for the similar reason in [facility]. On admission serum sodium is 124 with IV fluids it is improved to 126. As per the family most of her diet to include crackers and peanut butter. Looks like she is taking in very little sodium. Dietary advice was provided fall precautions are requested plan is to repeat the labs tomorrow. (3) Essential hypertension Is this a current diagnosis for this admission?: Yes Plan: Patient will be continued on her current medical regimen as described above until consideration for overall treatment can be provided by Dr. Robertson. 12/20/2018-patient blood pressure today is 158/60. Plan is to hold lisinopril for the moment because of hyponatremia she is also on hydrochlorothiazide plan is to hold hydrochlorothiazide at this moment. To check the blood pressures every shift. (4) Bradycardia Is this a current diagnosis for this admission?: Yes Plan: Patient's bradycardia is consistent with her beta-alena therapy. Is uncertain if the bradycardia is enough significance to cause her syncopal episodes and this will need to be determined by Dr. Robertson as part of his evaluation and recommendations for treatment. 12/20/2018-patient's heart rate is 51 this morning asymptomatic this morning please syncope may be secondary to bradycardia. (5) Anemia Qualifiers: Anemia type: unspecified type Qualified Code(s): D64.9 - Anemia, unspecified Is this a current diagnosis for this admission?: Yes Plan: An anemia profile and stools for occult blood x3 are ordered. A thyroid profile will be obtained. 12/20/2018-patient has history of chronic anemia hemoglobin is around 11 today stable. Plan is to continue the present management. tsh is 1.77. - Time Time Spent with patient: 25-34 minutes Medications reviewed and adjusted accordingly: Yes Anticipated discharge: Home
--- NOTE | 2018-12-20 09:31 | EKG REPORT ---
SEVERITY:- ABNORMAL ECG - SINUS BRADYCARDIA LEFT ANTERIOR FASCICULAR BLOCK : Confirmed by: An Robertson MD 20-Dec-2018 09:30:51
--- NOTE | 2018-12-20 09:32 | EKG REPORT ---
SEVERITY:- ABNORMAL ECG - SINUS BRADYCARDIA NONSPECIFIC IVCD WITH LAD LEFT VENTRICULAR HYPERTROPHY LEFT ANTERIOR FASCICULAR BLOCK : Confirmed by: An Robertson MD 20-Dec-2018 09:31:20
[2018-12-20] MEDS ORDERED: METOPROLOL SUCCINATE 25 MG TAB.SR.24H PO SCH (10:00)
[2018-12-20] MEDS ORDERED: LISINOPRIL 10 MG TABLET PO SCH (10:00)
[2018-12-20 11:13] LABS: CREATINE KINASE MB 2.45 ng/mL (<4.55)
[2018-12-20 11:17] LABS: TROPONIN I < 0.012 ng/mL
--- NOTE | 2018-12-20 11:48 | RADIOLOGY REPORT (SQ) ---
EXAM DESCRIPTION: CT HEAD WITHOUT COMPLETED DATE/TIME: 12/20/2018 11:37 am REASON FOR STUDY: near syncope COMPARISON: None. TECHNIQUE: Axial images acquired through the brain without intravenous contrast. Images reviewed wi th bone, brain and subdural windows. Additional sagittal and coronal reconstructions were generated. Images stored on PACS. All CT scanners at this facility use dose modulation, iterative reconstruction, and/or weight based d osing when appropriate to reduce radiation dose to as low as reasonably achievable (ALARA). [facility]: Dose Right [facility]: CareDose [facility]: Dose Right [facility]: Teradose 4D [facility]: Dermal Life RADIATION DOSE: CT Rad equipment meets quality standard of care and radiation dose reduction techniq ues were employed. CTDIvol: 48.8 mGy. DLP: 1030 mGy-cm. mGy. LIMITATIONS: None. FINDINGS: VENTRICLES: Prominent. CEREBRUM: No masses. No hemorrhage. No midline shift. Areas of low density in the white matter mos t likely due to chronic micro-vascular ischemic change. No evidence for acute infarction. CEREBELLUM: No masses. No hemorrhage. No alteration of density. No evidence for acute infarction. EXTRAAXIAL SPACES: Mild age-related involutional change. No fluid collections. No masses. ORBITS AND GLOBE: No intra- or extraconal masses. Normal contour of globe without masses. CALVARIUM: No fracture. PARANASAL SINUSES: No fluid or mucosal thickening. SOFT TISSUES: Small left parietal scalp hematoma. OTHER: No other significant finding. IMPRESSION: MILD CHRONIC CHANGES OF ATROPHY AND MICROVASCULAR ISCHEMIA. NO ACUTE PROCESS. EVIDENCE OF ACUTE STROKE: NO. TECHNICAL DOCUMENTATION: JOB ID: [id number] Quality ID # [id number]: Final reports with documentation of one or more dose reduction techniques (e.g., Au tomated exposure control, adjustment of the mA and/or kV according to patient size, use of iterative reconstruction technique) 2010 [employer]- All Rights Reserved Reading location - IP/workstation name: [email or web address]
[2018-12-20] MEDS: CLOPIDOGREL BISULFATE 75 MG TABLET PO SCH ×2 (12:11→12:13)
[2018-12-20] MEDS: SODIUM BICARBONATE 650 MG TABLET PO SCH ×4 (12:12→21:43)
[2018-12-20] MEDS: DOCUSATE SODIUM 100 MG CAPSULE PO SCH ×2 (12:12→17:05)
[2018-12-20] MEDS ORDERED: ATORVASTATIN CALCIUM 10 MG TABLET PO SCH (22:00)
[2018-12-21] MEDS: HEPARIN SOD (PORCINE) 5,000 UNIT/ML 1 ML VIAL SUBCUT SCH ×2 (05:42→13:35)
[2018-12-21 06:19] LABS: ABSOLUTE EOSINOPHILS # (AUTO) 0.1 10^3/uL (0.0-0.6); ABSOLUTE LYMPHOCYTES (AUTO) 2.1 10^3/uL (0.5-4.7); ABSOLUTE MONOCYTES (AUTO) 0.7 10^3/uL (0.1-1.4); ABSOLUTE NEUT (AUTO) 4.3 10^3/uL (1.7-8.2); BASOPHILS % (AUTO) 0.5 % (0-2); EOSINOPHILS % (AUTO) 1.5 % (0-6); HEMOGLOBIN 11.8 g/dL (12.0-15.5); MEAN CORPUSCULAR HEMOGLOBIN 34.1 pg (27.0-33.4); MEAN CORPUSCULAR HGB CONC 36.8 g/dL (32.0-36.0); MEAN CORPUSCULAR VOLUME 93 fl (80-97); MONOCYTES % (AUTO) 9.4 % (3-13); PLATELET COUNT 142 10^3/uL (150-450); RED BLOOD COUNT 3.46 10^6/uL (3.72-5.28); RED CELL DISTRIBUTION WIDTH 13.7 % (11.5-14.0); SEGMENTED NEUTROPHILS % (AUTO) 59.6 % (42-78); TOTAL CELLS COUNTED % (AUTO) 100 %; WHITE BLOOD COUNT 7.2 10^3/uL (4.0-10.5)
[2018-12-21 06:39] LABS: ALBUMIN 3.6 g/dL (3.5-5.0); ALKALINE PHOSPHATASE 36 U/L (38-126); ANION GAP 7 (5-19); ASPARTATE AMINO TRANSFERASE 24 U/L (14-36); BILIRUBIN,DIRECT 0.2 mg/dL (0.0-0.4); BLOOD UREA NITROGEN 11 mg/dL (7-20); CARBON DIOXIDE 26 mmol/L (22-30); CHLORIDE 99 mmol/L (98-107); GLUCOSE 82 mg/dL (75-110); POTASSIUM 4.2 mmol/L (3.6-5.0); TOTAL PROTEIN 5.8 g/dL (6.3-8.2)
[2018-12-21] MEDS ORDERED: ESTRADIOL PV SCH (08:00)
[2018-12-21] MEDS ORDERED: ONDANSETRON HCL INJ/PF 4 MG/2 ML SDV IV PRN (08:30)
[2018-12-21] MEDS ORDERED: RANOLAZINE 1000 MG PO SCH (10:00)
[2018-12-21] MEDS ORDERED: METOPROLOL TARTRATE 25 MG TABLET PO SCH (10:00)
[2018-12-21] MEDS ORDERED: DILTIAZEM HCL 30 MG TABLET PO SCH (10:00)
[2018-12-21] MEDS ORDERED: RANOLAZINE 500 MG TAB.SR.12H PO SCH (10:00)
[2018-12-21] MEDS ORDERED: CLOPIDOGREL BISULFATE 75 MG TABLET PO SCH (10:00)
[2018-12-21] MEDS: SODIUM BICARBONATE 650 MG TABLET PO SCH ×2 (10:11→13:36)
[2018-12-21] MEDS: FAMOTIDINE 20 MG TABLET PO SCH (10:11)
[2018-12-21] MEDS: DOCUSATE SODIUM 100 MG CAPSULE PO SCH (10:12)
--- NOTE | 2018-12-21 12:44 | RADIOLOGY REPORT (SQ) ---
EXAM DESCRIPTION: CAROTID DOPPLER COMPLETED DATE/TIME: 12/21/2018 12:02 pm REASON FOR STUDY: TIA COMPARISON: None. TECHNIQUE: Grayscale ultrasound, Doppler velocity and spectra, and color Doppler images acquired of the extra-cranial carotid and vertebral arteries. Images stored on PACS. LIMITATIONS: None. FINDINGS: RIGHT CAROTID CCA Velocities: Within normal limits. ICA Velocities Peak systolic 141 cm/s. End diastolic 29 cm/s. Proximal ICA/CCA peak systolic ratio 1.18. There is plaque in the common carotid, carotid bulb, and proximal ICA. LEFT CAROTID CCA Velocities: Within normal limits. ICA Velocities Peak systolic 145 cm/s. End diastolic 28 cm/s. Proximal ICA/CCA peak systolic ratio 1.5. There is plaque in the common carotid artery and the carotid bulb. VERTEBRAL ARTERIES: Antegrade flow. Normal waveforms. SUBCLAVIAN ARTERIES: No finding. OTHER: No other significant finding. IMPRESSION: NO HEMODYNAMICALLY SIGNIFICANT STENOSIS. COMMENT: Quality ID #[id number]: Velocity criteria are extrapolated from the diameter data as defined by t he Society of Radiologists in Ultrasound Consensus Conference. Radiology 2003: 229; 340-346. TECHNICAL DOCUMENTATION: JOB ID: [id number]- All Rights Reserved Reading location - IP/workstation name: [email or web address]
--- NOTE | 2018-12-21 12:47 | RADIOLOGY REPORT (SQ) ---
EXAM DESCRIPTION: MRI HEAD WITHOUT COMPLETED DATE/TIME: 12/21/2018 12:05 pm REASON FOR STUDY: tia COMPARISON: None. TECHNIQUE: Multiplanar imaging includes non-contrasted T1, T2, FLAIR, and diffusion with ADC map seq uences. Images stored on PACS. LIMITATIONS: None. FINDINGS: ANATOMY: No anomalies. Normal vascular flow voids. Pituitary fossa normal. CSF SPACES: Normal in size and contour. No hemorrhage. CEREBRUM: Sulci and gyri normal in size and contour. Scattered areas of increased white matter signa l on FLAIR imaging. No evidence of hemorrhage, mass, or extraaxial fluid collection. POSTERIOR FOSSA: No signal alteration. No hemorrhage. No edema, masses or mass effect. Internal travis tory canals, cerebello-pontine angles, mastoids normal. DIFFUSION IMAGING: Negative for acute or sub-acute infarction. ORBITS: No masses. Globes normal. PARANASAL SINUSES: No fluid levels. Mucosa normal. OTHER: No other significant finding. IMPRESSION: Mild chronic microvascular ischemia with no acute intracranial imaging finding. EVIDENCE OF ACUTE STROKE: NO. TECHNICAL DOCUMENTATION: JOB ID: [id number]- All Rights Reserved Reading location - IP/workstation name: [email or web address]
[2018-12-21 16:48] VITALS: BP 137/48
--- NOTE | 2018-12-21 17:16 | PDOC DISCHARGE SUMMARY ---
General - Admit/Disc Date/PCP Admission Date/Primary Care Provider: 12/19/18 23:54 HAYES VERDUZCO MD Discharge Date: 12/21/18 - Discharge Diagnosis (1) Near syncope Is this a current diagnosis for this admission?: Yes Summary: Serial cardiac enzymes and EKGs will be obtained. CT scan of the head will be obtained. Patient will be monitored on telemetry and a cardiology consultation will be obtained with Dr. Robertson to guide further evaluation and treatment. Serial cardiac enzymes and EKGs will be obtained. CT scan of the head will be obtained. Patient will be monitored on telemetry and a cardiology consultation will be obtained with Dr. Robertson to guide further evaluation and treatment. 12/20/18- pt is doing well .. scheduled for ct and carotid doppler pending. Near syncope may be secondary to hyponatremia. [id number] admitted with a near syncope doing extremely well. No complaints of presyncopal symptoms or lightheadedness dizziness during the hospital stay. MRI of the head and CT head came back negative. (2) Hyponatremia Is this a current diagnosis for this admission?: Yes Summary: Patient's hyponatremia will be evaluated by serial metabolic profiles. The treatment of her hyponatremia will sodium bicarbonate oral therapy. 12/20/2018-patient has history of hyponatremia she was admitted for the similar reason in [facility]. On admission serum sodium is 124 with IV fluids it is improved to 126. As per the family most of her diet to include crackers a nd peanut butter. Looks like she is taking in very little sodium. Dietary advice was provided fall precautions are requested plan is to repeat the labs tomorrow. 12/21/18-patient admitted with hyponatremia most likely secondary to hydrochlorothiazide and lisinopril. Hydrochlorothiazide was discontinued Sodium improved to 131.8 today. Family is also telling me she eat crackers and drink tea advised her to eat diet with salt. (3) Essential hypertension Is this a current diagnosis for this admission?: Yes Summary: Patient will be continued on her current medical regimen as described above until consideration for overall treatment can be provided by Dr. Robertson. 12/20/2018-patient blood pressure today is 158/60. Plan is to hold lisinopril for the moment because of hyponatremia she is also on hydrochlorothiazide plan is to hold hydrochlorothiazide at this moment. To check the blood pressures every shift. 12/21/2018-blood pressure today is 137/48 stable. Patient is advised to continue lisinopril and also advised to hold hydrochlorothiazide until she sees her primary care physician. (4) Bradycardia Is this a current diagnosis for this admission?: Yes Summary: Patient's bradycardia is consistent with her beta-alena therapy. Is uncertain if the bradycardia is enough significance to cause her syncopal episodes and this will need to be determined by Dr. Robertson as part of his evaluation and recommendations for treatment. 12/20/2018-patient's heart rate is 51 this morning asymptomatic this morning please syncope may be secondary to bradycardia. 12/21/2018-heart rate is 58 today patient is advised to hold metoprolol until she is seen by primary care physician. (5) Anemia Is this a current diagnosis for this admission?: Yes Summary: An anemia profile and stools for occult blood x3 are ordered. A thyroid profile will be obtained. 12/20/2018-patient has history of chronic anemia hemoglobin is around 11 today stable. Plan is to continue the present management. tsh is 1.77. 12/21/2018-patient's hemoglobin today is 11.8 stable. - Additional Information Resuscitation Status: Full Code Discharge Diet: Cardiac Discharge Activity: Activity As Tolerated Home Medications: Atorvastatin Calcium [Lipitor 40 mg Tablet] 40 mg PO QHS 12/20/18 Clopidogrel Bisulfate [Plavix 75 mg Tablet] 75 mg PO DAILY 12/20/18 Diltiazem HCl [Cardizem 30 mg Tablet] 30 mg PO Q12 12/20/18 Estradiol 1 applic PV Q3D 12/20/18 Ezetimibe 10 mg PO QHS 12/20/18 Losartan Potassium [Cozaar 50 mg Tablet] 100 mg PO DAILY 12/20/18 Metoprolol Tartrate [Lopressor 25 mg Tablet] 25 mg PO Q12 12/20/18 Nitroglycerin [Nitrostat 0.4 mg (1/150 Gr) Tabs 25/Bottle] 1 tab SL Q5MP PRN 12/20/18 Omeprazole 40 mg PO DAILY 12/20/18 Ranolazine [Ranolazine ER] 1,000 mg PO BID 12/20/18 History of Present Illness History of Present Illness: NEHA DENTON is a 83 year old female 83 year old female who presented to the emergency room with acute lightheadedness. She admits that shortly prior to coming to the hospital via ambulance she got up off of her couch and walked up the 3 stairs to get into her living room when she began feeling very lightheaded and fell over the last step onto her hands and knees. She felt too lightheaded to stand and her vision seemed to "go dark". She crawled in her hands and knees to get to a phone where she called her son for help. She denies unconsciousness and injury. She denies other accompanying or associated symptoms. She admits several prior similar episodes, "usually due to my sodium and potassium". She further reports that she attended her sister's today and did not eat dinner this evening but was drinking plenty of fluids throughout the day. At the time the patient was seen in the emergency room she felt like she was back to normal. She has not identified any aggravating or ameliorating factors for her lightheadedness. In the emergency room she was found to be bradycardic (38-48) which was also noted by EMS and she was mildly hypotensive. Her initial cardiac enzymes were negative and her EKG showed no evidence of myocardial ischemia or injury. She was subsequently admitted to the hospital for further evaluation and treatment. 12/[id number]-riox-old female admitted with acute lightheadedness. And admitted for TIA. CT head was negative and MRI of the head foot negative for acute pathology. Carotid Doppler was negative for stenosis. No acute events in the last 24 hours. Alert awake communicating well expressing desire to go home today. Physical Exam Vital Signs: Temp Pulse Resp BP Pulse Ox 97.5 F 58 L 20 137/48 H 99 12/21/18 16:47 12/21/18 16:47 12/21/18 16:47 12/21/18 16:47 12/21/18 16:47 Intake & Output 12/20/18 12/21/18 12/22/18 06:59 06:59 06:59 Intake Total 500 360 Output Total 400 Balance 100 360 Weight 46.72 kg 49.7 kg General appearance: PRESENT: no acute distress, cooperative, thin Head exam: PRESENT: atraumatic Eye exam: PRESENT: PERRLA Ear exam: PRESENT: normal external ear exam Mouth exam: PRESENT: moist Teeth exam: PRESENT: poor dentation Neck exam: ABSENT: carotid bruit, JVD, lymphadenopathy, thyromegaly Cardiovascular exam: PRESENT: RRR. ABSENT: diastolic murmur, rubs, systolic murmur GI/Abdominal exam: PRESENT: normal bowel sounds, soft. ABSENT: distended, guarding, mass, organolmegaly, rebound, tenderness Rectal exam: PRESENT: deferred Extremities exam: PRESENT: full ROM. ABSENT: calf tenderness, clubbing, pedal edema Neurological exam: PRESENT: alert, awake, oriented to person, oriented to place, oriented to time, oriented to situation, CN II-XII grossly intact. ABSENT: motor sensory deficit Psychiatric exam: PRESENT: appropriate affect, normal mood. ABSENT: homicidal ideation, suicidal ideation Results Laboratory Results: 12/21/18 05:55 12/21/18 05:55 12/21/18 12/21/18 05:55 05:55 WBC 7.2 RBC 3.46 L Hgb 11.8 L Hct 32.0 L MCV 93 MCH 34.1 H MCHC 36.8 H RDW 13.7 Plt Count 142 L Seg Neutrophils % 59.6 Sodium 131.8 L Potassium 4.2 Chloride 99 Carbon Dioxide 26 Anion Gap 7 BUN 11 Creatinine 0.60 Est GFR ( Amer) > 60 Glucose 82 Calcium 9.0 Magnesium 1.8 Total Bilirubin 1.0 AST 24 Alkaline Phosphatase 36 L Total Protein 5.8 L Albumin 3.6 12/19/18 12/19/18 12/19/18 22:20 22:20 22:20 Creatine Kinase 161 H CK-MB (CK-2) 2.86 Troponin I < 0.012 Cancelled 12/20/18 12/20/18 12/20/18 04:28 04:28 10:34 Creatine Kinase 128 128 CK-MB (CK-2) 2.74 Troponin I < 0.012 12/20/18 10:34 Creatine Kinase CK-MB (CK-2) 2.45 Troponin I < 0.012 Impressions: Chest X-Ray 12/19/18 22:16 IMPRESSION: 1. No acute pulmonary process identified. Head CT 12/20/18 00:00 IMPRESSION: MILD CHRONIC CHANGES OF ATROPHY AND MICROVASCULAR ISCHEMIA. NO ACUTE PROCESS. EVIDENCE OF ACUTE STROKE: NO. Carotid Doppler Study 12/21/18 00:00 IMPRESSION: NO HEMODYNAMICALLY SIGNIFICANT STENOSIS. Head MRI 12/21/18 12:04 IMPRESSION: Mild chronic microvascular ischemia with no acute intracranial imaging finding. EVIDENCE OF ACUTE STROKE: NO. Qualifiers - * PATIENT BEING DISCHARGED WITH ANY OF THE FOLLOWING DIAGNOSIS: No VTE patient discharged on overlapping Therapy?: No Acute Heart Failure - Is this a Heart Failure Patient?: No Plan Time Spent: Greater than 30 Minutes
[2018-12-21] MEDS ORDERED: ATORVASTATIN CALCIUM 40 MG TABLET PO SCH (22:00)
[2018-12-21] MEDS ORDERED: EZETIMIBE 10 MG TABLET PO SCH (22:00)
== END 2018-12-21 17:11 | disposition home or self-care (01) | DRG 641 ==
LOC: ER 21:39 → EH 23:54 → 4N 12-20 00:48
PROVIDERS: ADMIT Emergency Medicine; ATTEND Emergency Medicine
DX: E87.1 Hypo-osmolality and hyponatremia (principal); R42 Dizziness and giddiness; D64.9 Anemia, unspecified; I10 Essential (primary) hypertension; E78.5 Hyperlipidemia, unspecified; I25.10 Atherosclerotic heart disease of native coronary artery without angina pectoris; Z60.2 Problems related to living alone; I25.2 Old myocardial infarction; Z95.1 Presence of aortocoronary bypass graft
CPT/HCPCS: 36415; 70450; 70551; 71045; 80048; 80053; 80061; 81001; 82550; 82553; 82607; 82728; 82746; 83540; 83550; 83735; 84439; 84443; 84481; 84484; 85025; 85027; 85045; 93005; 93010; 93880; 96360; 99285; J3490; J7040; J7120

== ENCOUNTER 2018-12-31 14:11 | Emergency (ER) | payer MEDICARE, OTHER, BC ==
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
[2018-12-31 15:46] LABS: ABSOLUTE EOSINOPHILS # (AUTO) 0.1 10^3/uL (0.0-0.6); ABSOLUTE LYMPHOCYTES (AUTO) 1.9 10^3/uL (0.5-4.7); ABSOLUTE MONOCYTES (AUTO) 0.8 10^3/uL (0.1-1.4); ABSOLUTE NEUT (AUTO) 2.6 10^3/uL (1.7-8.2); BASOPHILS % (AUTO) 0.6 % (0-2); EOSINOPHILS % (AUTO) 1.6 % (0-6); HEMATOCRIT 33.1 % (36.0-47.0); HEMOGLOBIN 12.2 g/dL (12.0-15.5); LYMPHOCYTES % (AUTO) 35.6 % (13-45); MEAN CORPUSCULAR HEMOGLOBIN 34.4 pg (27.0-33.4); MEAN CORPUSCULAR HGB CONC 36.8 g/dL (32.0-36.0); MEAN CORPUSCULAR VOLUME 93 fl (80-97); MONOCYTES % (AUTO) 14.4 % (3-13); PLATELET COUNT 179 10^3/uL (150-450); RED BLOOD COUNT 3.55 10^6/uL (3.72-5.28); RED CELL DISTRIBUTION WIDTH 13.1 % (11.5-14.0); SEGMENTED NEUTROPHILS % (AUTO) 47.8 % (42-78); TOTAL CELLS COUNTED % (AUTO) 100 %; WHITE BLOOD COUNT 5.4 10^3/uL (4.0-10.5)
[2018-12-31 16:04] LABS: ALBUMIN 4.3 g/dL (3.5-5.0); ALKALINE PHOSPHATASE 45 U/L (38-126); ANION GAP 10 (5-19); ASPARTATE AMINO TRANSFERASE 23 U/L (14-36); BILIRUBIN,DIRECT 0.2 mg/dL (0.0-0.4); BILIRUBIN,TOTAL 0.8 mg/dL (0.2-1.3); BLOOD UREA NITROGEN 20 mg/dL (7-20); CALCIUM 9.2 mg/dL (8.4-10.2); CARBON DIOXIDE 27 mmol/L (22-30); CHLORIDE 92 mmol/L (98-107); CREATINE KINASE 46 U/L (30-135); GLUCOSE 115 mg/dL (75-110); TOTAL PROTEIN 6.7 g/dL (6.3-8.2)
[2018-12-31 16:30] LABS: APPEARANCE,URINE CLEAR; BILIRUBIN,URINE NEGATIVE (NEGATIVE); COLOR,URINE YELLOW; GLUCOSE, URINE NEGATIVE (NEGATIVE); KETONES,URINE NEGATIVE (NEGATIVE); LEUKOCYTE ESTERASE,URINE NEGATIVE (NEGATIVE); NITRITE,URINE NEGATIVE (NEGATIVE); PROTEIN,URINE NEGATIVE (NEGATIVE)
[2018-12-31 17:49] VITALS: BP 157/57
--- NOTE | 2019-01-03 18:46 | EKG REPORT ---
SEVERITY:- ABNORMAL ECG - SINUS RHYTHM LEFT BUNDLE BRANCH BLOCK : Confirmed by: Lesly Donnelly 03-Jan-2019 18:45:59
== END 2018-12-31 17:48 | disposition home or self-care (01) ==
LOC: ER 14:11
DX: E87.1 Hypo-osmolality and hyponatremia (principal); R53.1 Weakness; R51 Headache; M54.2 Cervicalgia; I25.10 Atherosclerotic heart disease of native coronary artery without angina pectoris; I10 Essential (primary) hypertension
CPT/HCPCS: 36415; 80053; 81001; 82550; 84484; 85025; 93005; 93010; 99283

== ENCOUNTER 2020-01-21 13:27 | Emergency (ER) | payer MEDICARE, OTHER, BC ==
[2020-01-21 14:30] LABS: ABSOLUTE EOSINOPHILS # (AUTO) 0.1 10^3/uL (0.0-0.6); ABSOLUTE LYMPHOCYTES (AUTO) 1.7 10^3/uL (0.5-4.7); ABSOLUTE MONOCYTES (AUTO) 0.7 10^3/uL (0.1-1.4); BASOPHILS % (AUTO) 0.8 % (0-2); EOSINOPHILS % (AUTO) 2.2 % (0-6); HEMATOCRIT 31.3 % (36.0-47.0); HEMOGLOBIN 11.3 g/dL (12.0-15.5); LYMPHOCYTES % (AUTO) 30.7 % (13-45); MEAN CORPUSCULAR HEMOGLOBIN 33.6 pg (27.0-33.4); MEAN CORPUSCULAR VOLUME 93 fl (80-97); MONOCYTES % (AUTO) 12.4 % (3-13); RED BLOOD COUNT 3.36 10^6/uL (3.72-5.28); RED CELL DISTRIBUTION WIDTH 13.9 % (11.5-14.0); SEGMENTED NEUTROPHILS % (AUTO) 53.9 % (42-78); TOTAL CELLS COUNTED % (AUTO) 100 %; WHITE BLOOD COUNT 5.6 10^3/uL (4.0-10.5)
[2020-01-21 14:38] LABS: ALBUMIN 4.1 g/dL (3.5-5.0); ALKALINE PHOSPHATASE 94 U/L (38-126); ANION GAP 10 (5-19); ASPARTATE AMINO TRANSFERASE 24 U/L (14-36); BILIRUBIN,DIRECT 0.3 mg/dL (0.0-0.4); BILIRUBIN,TOTAL 0.7 mg/dL (0.2-1.3); BLOOD UREA NITROGEN 17 mg/dL (7-20); CALCIUM 9.4 mg/dL (8.4-10.2); CARBON DIOXIDE 24 mmol/L (22-30); CHLORIDE 105 mmol/L (98-107); GLUCOSE 89 mg/dL (75-110); POTASSIUM 4.2 mmol/L (3.6-5.0); TOTAL PROTEIN 6.5 g/dL (6.3-8.2)
[2020-01-21 14:51] LABS: PLATELET COUNT 164 10^3/uL (150-450)
[2020-01-21] MEDS ORDERED: ONDANSETRON HCL INJ/PF 4 MG/2 ML SDV IV ONE (18:05)
[2020-01-21] MEDS ORDERED: FENTANYL CITRATE INJ/PF 100 MCG/2 ML AMPUL IV ONE (18:07)
--- NOTE | 2020-01-21 18:37 | ER Document Report ---
Entered by SHABANA GUSTAFSON SCRIBE 01/21/20 1804 Acting as scribe for:ALEJANDRO AWAD MD ED General - General Chief Complaint: Near Syncope Stated Complaint: BLOOD PRESSURE ISSUES Time Seen by Provider: 01/21/20 17:42 Primary Care Provider: HAYES VERDUZCO MD [Primary Care Provider] - Follow up as needed Mode of Arrival: Ambulatory Information source: Patient Notes: This 84-year-old female patient presents to the emergency department today with complaints of a near syncopal episode. Patient states she was cooking bread, the room got dark, she got very lightheaded, and she sat down. EMS got an initial blood pressure of 58/45. She has no complaints now other than coccyx pain. She reports her PCP did a full body xray on her recently and told her about the coccyx fracture but told her that it "seemed to be healing properly". EMS gave the patient a 250 mL bolus of LR, and her blood pressure came up to 137/63. TRAVEL OUTSIDE OF THE [place] IN LAST 30 DAYS: No - Related Data Allergies/Adverse Reactions: morphine [Morphine] Allergy (Verified 12/19/18 22:15) made crazy Past Medical History - General Information source: Patient - Social History Smoking Status: Former Smoker Cigarette use (# per day): No Frequency of alcohol use: None Drug Abuse: None Lives with: Family Family History: Reviewed & Not Pertinent, CAD, Hypertension, Malignancy Patient has homicidal ideation: No - Past Medical History Cardiac Medical History: Reports: Hx Coronary Artery Disease, Hx Heart Attack - 2009, Hx Hypercholesterolemia, Hx Hypertension Past Surgical History: Reports: Hx Cardiac Catheterization, Hx Coronary Stent - X4, Hx Open Heart Surgery - stents x4, Hx Orthopedic Surgery - Right hip surgery, left rotator cuff repair and left foot fracture, Other - Bilateral cataract surgery - Immunizations Immunizations up to date: Yes Hx Diphtheria, Pertussis, Tetanus Vaccination: Yes - 03/09/14 Review of Systems - Review of Systems Constitutional: No symptoms reported EENT: No symptoms reported Cardiovascular: See HPI, Syncope, Lightheaded Respiratory: No symptoms reported Gastrointestinal: No symptoms reported Genitourinary: No symptoms reported Female Genitourinary: No symptoms reported Musculoskeletal: See HPI, Joint pain Skin: No symptoms reported Hematologic/Lymphatic: No symptoms reported Neurological/Psychological: No symptoms reported -: Yes All other systems reviewed and negative Physical Exam - Vital signs Vitals: Pulse Ox 92 01/21/20 13:31 - Notes Notes: Physical Exam: General: Alert, complains of coccyx pain. HEENT: Normocephalic. Atraumatic. PERRL. Extraocular movements intact. Oropharynx clear. Neck: Supple. Non-tender. Respiratory: No respiratory distress. Clear and equal breath sounds bilaterally. Cardiovascular: Regular rate and rhythm. Abdominal: Normal Inspection. Non-tender. No distension. Normal Bowel Sounds. Back: Tenderness with palpation over the coccyx. No gross abnormalities. Extremities: Moves all four extremities. Upper extremities: Normal inspection. Normal ROM. Lower extremities: Normal inspection. No edema. Normal ROM. Neurological: Normal cognition. AAOx4. Normal speech. Psychological: Normal affect. Normal Mood. Skin: Warm. Dry. Normal color. Course - Re-evaluation Re-evalutation: 01/21/20 20:02 The patient was evaluated during the global COVID-19 pandemic and that diagnosis was suspected/considered upon their initial presentation. Their evaluation, treatment and testing was consistent with current guidelines for patients who present with complaints or symptoms that may be related to COVID-19. I have been observing the patient now for over 2 hours and she has not had a drop in blood pressure and remains asymptomatic. The patient is quite anxious to leave. She does not want to have a COVID test done. - Vital Signs Vital signs: Temp Pulse Resp BP Pulse Ox 97.5 F 18 142/50 H 98 01/21/20 14:01 01/21/20 17:01 01/21/20 17:00 01/21/20 17:01 - Laboratory Result Diagrams: 01/21/20 13:49 01/21/20 13:49 Laboratory results interpreted by me: 01/21/20 13:49 RBC 3.36 L Hgb 11.3 L Hct 31.3 L MCH 33.6 H - EKG Interpretation by [place] EKG shows normal: Sinus rhythm, [place], Intervals, QRS Complexes, ST-T Waves Rate: Normal - 58 Rhythm: NSR [place]/QRS: LAHB/LAFB Voltage: Consistent with LVH When compared to previous EKG there are: No significant change Discharge - Discharge Clinical Impression: Near syncope Hypotension Qualifiers: Hypotension type: unspecified hypotension type Qualified Code(s): I95.9 - Hypotension, unspecified Condition: Stable Disposition: HOME, SELF-CARE Additional Instructions: Syncopal Episode Syncope (fainting or near-fainting) can occur from many different health problems. Or it can be a simple fainting spell requiring no treatment. It is safe for you to go home, but further evaluation will likely be necessary. Your work-up may include tests for internal bleeding, heart disease, medication problems, or near-strokes. Tests are not always required, however, depending on the nature of your problem. The warning signs of an impending faint include: dizziness, lig htheadedness, nausea, hot flashes, tingling, and weakness. If this happens, lay down and put your feet up, then wait until all of these symptoms have passed before standing up again. If these episodes become recurrent, or if you develop chest pain, heart palpitations, mental confusion, blurred vision, or headache, then you should call the physician, or go to the emergency room. Hypotension Your blood pressure was low. Low blood pressure can make you feel weak, lightheaded, and even make you pass out. Low blood pressure can be caused by dehydration or blood loss. Problems with the heart, kidneys, or blood vessels can cause hypotension. Certain medications can make your blood pressure abnormally low. Infection can lower blood pressure. In many cases, the person is totally healthy, but for unknown reasons, the blood pressure falls when they stand up. This is called benign orthostatic hypotension. The treatment of low blood pressure depends on the severity of the sy mptoms, and on the underlying cause. Sometimes it's not possible to identify a cause. At this time, it doesn't appear that the problem is serious enough to require hospitalization. Medicines that could be contributing to the problem can be withheld or reduced in dosage if your doctor approves. Get plenty of fluids. Eat a healthy diet. Be careful to stand up slowly. If you feel suddenly lightheaded or if your vision goes bullock, sit or lie down at once. Don't drive or operate machinery until the symptoms are under control. Return or call the doctor if you develop fainting or severe dizziness, severe weakness, problems with vision, chest pain, shortness of breath, fever, or confusion. Drink plenty of fluids get plenty of rest. Follow-up with your primary care provider if you continue to have episodes like this. RETURN TO THE EMERGENCY ROOM IF ANY NEW OR WORSENING SYMPTOMS. Referrals: HAYES VERDUZCO MD [Primary Care Provider] - Follow up as needed I personally performed the services described in the documentation, reviewed and edited the documentation which was dictated to the scribe in my presence, and it accurately records my words and actions.
[2020-01-21 18:59] LABS: APPEARANCE,URINE CLEAR; BILIRUBIN,URINE NEGATIVE (NEGATIVE); COLOR,URINE YELLOW; GLUCOSE, URINE NEGATIVE (NEGATIVE); KETONES,URINE NEGATIVE (NEGATIVE); LEUKOCYTE ESTERASE,URINE NEGATIVE (NEGATIVE); NITRITE,URINE NEGATIVE (NEGATIVE); PROTEIN,URINE NEGATIVE (NEGATIVE); URINE SPECIFIC GRAVITY 1.009; UROBILINOGEN,URINE NEGATIVE mg/dL (<2.0)
[2020-01-21 20:25] VITALS: BP 149/57
--- NOTE | 2020-01-21 21:28 | EKG REPORT ---
SEVERITY:- ABNORMAL ECG - SINUS RHYTHM LEFT ANTERIOR FASCICULAR BLOCK PROBABLE LEFT VENTRICULAR HYPERTROPHY : Confirmed by: An Robertson MD 21-Jan-2020 21:28:19
== END 2020-01-21 20:26 | disposition home or self-care (01) ==
LOC: ER 13:27
DX: R55 Syncope and collapse (principal); I95.9 Hypotension, unspecified; I25.10 Atherosclerotic heart disease of native coronary artery without angina pectoris; E78.00 Pure hypercholesterolemia, unspecified; I10 Essential (primary) hypertension; I25.2 Old myocardial infarction
CPT/HCPCS: 93005; 99284; 96374; 96375; 36415; 82550; 85025; 80053; 81001; 84484; 93010; J3010; J2405